=== PATIENT | male | born 1965 | race Caucasian/White ===

== ENCOUNTER 2018-10-15 08:45 | Emergency (ER) | payer OTHER ==
[~2018-10-15] VITALS: Ht 175.3 cm; Wt 76.2 kg
[2018-10-15 08:54] VITALS: BP 134/80
== END 2018-10-15 10:54 | disposition home or self-care (01) ==
LOC: ED 10:45
DX: G89.11 Acute pain due to trauma (principal); M25.562 Pain in left knee; W21.03XA Struck by baseball, initial encounter; Y93.64 Activity, baseball; Y92.320 Baseball field as the place of occurrence of the external cause; Y99.8 Other external cause status
CPT/HCPCS: 29505; 99283